=== PATIENT | male | born 1965 | race Caucasian/White ===

== ENCOUNTER 2018-10-01 12:34 | Emergency (ER) | payer SELFPAY ==
[~2018-10-01] VITALS: Ht 180.3 cm; Wt 122.0 kg
--- NOTE | 2018-10-01 12:52 | NUR ---
PT TO ROOM FROM LOBBY
[2018-10-01] MEDS ORDERED: KETOROLAC 30 MG/1 ML ONE (13:17)
--- NOTE | 2018-10-01 13:19 | NUR ---
BREAK RN: THIS IS A 53 YO MALE WHO PRESENTS TO THE ER C/O DIARRHEA AND LEFT FLANK PAIN X 4 DAYS WITH PAINFUL URINATION. PT DENIES N/V. PT AO X 4. SKIN PWD. RESP EVEN AND EQAUL. PT AWARE THAT WE ARE WAITING FOR LAB/IMAGING RESULTS. PT PROVIDED WITH URINE SAMPLE CUP. PT AWARE THAT WE NEED SAMPLE. CALL LIGHT WITHIN REACH. WILL CONT TO MONITOR PT.
[2018-10-01] MEDS ORDERED: KETOROLAC 30 MG/1 ML IM ONE (13:30)
[2018-10-01 13:33] LABS: BASOPHILS # (AUTO) 0.07 x10^3/uL (0-0.1); BASOPHILS % (AUTO) 1 % (0-1); EOSINOPHILS # (AUTO) 0.13 x10^3/uL (0-0.4); EOSINOPHILS % (AUTO) 2 % (1-7); LYMPHOCYTES # (AUTO) 2.52 x10^3/uL (1-3.4); LYMPHOCYTES % (AUTO) 28 % (22-44); MD NO; MEAN CORPUSCULAR HEMOGLOBIN 30.2 pg (27.5-34.5); MEAN CORPUSCULAR HGB CONC 33.6 g/dL (33.2-36.2); MEAN CORPUSCULAR VOLUME 89.8 fL (81-97); MONOCYTES # (AUTO) 0.43 x10^3/uL (0.2-0.8); MONOCYTES % (AUTO) 5 % (2-9); NEUTROPHILS # (AUTO) 5.77 x10^3/uL (1.8-6.8); NEUTROPHILS % (AUTO) 65 % (42-75); PLATELET COUNT 303 x10^3/uL (130-400); RED BLOOD COUNT 5.01 x10^6/uL (4.38-5.82); RED CELL DISTRIBUTION WIDTH 13.4 % (9.4-14.8)
[2018-10-01 13:45] LABS: ALBUMIN 3.7 g/dL (3.4-5.0); ANION GAP 7 mmol/L (5-15); CALCIUM 8.4 mg/dL (8.5-10.1); CHLORIDE 108 mmol/L (98-107); CREATININE 1.02 mg/dL (0.7-1.3)
--- NOTE | 2018-10-01 14:10 | NUR ---
BREAK RN: PT WAS MEDICATED ORDERED FOR PAIN, PT NOW SLEEPING ON GURNEY. URINE SAMPLE OBTAINED AND SENT TO LAB AT THIS TIME. PT AND AWARE THAT WE ARE WAITING FOR LAB/IMAGING RESULTS. PT ON CONT BP AND O2 MONITORS. LAKE LIGHT WITHIN REACH. WILL CONT TO MONITOR PT.
[2018-10-01 14:24] LABS: MICROSCOPIC NOT IND
[2018-10-01 14:31] LABS: CULTURE INDICATED? NO
--- NOTE | 2018-10-01 14:37 | NUR ---
PT. IS RESTING WITHOUT CONCERNS.
--- NOTE | 2018-10-01 16:27 | NUR ---
PT. STATES RELIEF FROM MEDICATIONS. PT. WAS GIVEN DISCHARGE INSTRUCTIONS WITH UNDERSTANDING VERBALIZED ALONG WITH WILLINGNESS TO COMPLY. PT. WAS AMBULATORY TO THE DISCHARGE DESK. STEADY GAIT. VSS.
[2018-10-01 16:28] VITALS: BP 132/69
== END 2018-10-01 16:30 | disposition home or self-care (01) ==
LOC: ED 16:00
DX: S39.012A Strain of muscle, fascia and tendon of lower back, initial encounter (principal); X58.XXXA Exposure to other specified factors, initial encounter; Y93.89 Activity, other specified; Y92.89 Other specified places as the place of occurrence of the external cause; Y99.8 Other external cause status
CPT/HCPCS: 36415; 74176; 80048; 81003; 82040; 85025; 96372; 99284; J1885